=== PATIENT | male | born 1995 | race American Indian/Alaskan Native ===

== ENCOUNTER 2017-01-29 11:15 | Emergency (ER) ==
[2017-01-29 11:21] VITALS: BMI 32.4
[2017-01-29] MEDS ORDERED: ALBUTEROL 0.083% NEB NEB STA (11:41)
--- NOTE | 2017-01-29 11:41 | ED.PDOC ---
General ED Provider: Dr. KHOA MARX Chief Complaint: Respiratory Complaint Stated Complaint: Patient is a 21 year old who comes to the ER with cough productive of onset yellow/green mucous, with some wheezing. Time Seen by Physician: 11:35 Mode of Arrival: Walk-In Information Source: Patient Exam Limitations: No limitations Nursing and Triage Documentation Reviewed and Agree: Yes Review of Systems - Review Of Systems Constitutional: Reports: Fever Eyes: Reports: No symptoms Ears, Nose, Mouth, Throat: Reports: No symptoms Respiratory: Reports: Cough Cardiac: Reports: No symptoms GI: Reports: No symptoms : Reports: No symptoms Musculoskeletal: Reports: No symptoms Skin: Reports: No symptoms Neurological: Reports: No symptoms Endocrine: Reports: No symptoms Hematologic/Lymphatic: Reports: No symptoms All Other Systems: Reviewed and Negative Past Medical History - Past Medical History Previously Healthy: Yes Endocrine: Reports: None Cardiovascular: Reports: None Respiratory: Reports: None Hematological: Reports: None Gastrointestinal: Reports: None Genitourinary: Reports: None Neuro/Psych: Reports: None Musculoskeletal: Reports: None Cancer: Reports: None - Surgical History General Surgical History: Reports: None - Family History Family History: Reports: None - Social History Smoking Status: Former smoker Hx Substance Use: No Alcohol Screening: Occasionally Physical Exam - Physical Exam Appearance: Ill-appearing, Obese Ill-appearing: Mild Pain Distress: Mild Eyes: CASIMIRO, EOMI, Conjunctiva clear ENT: Ears normal, Nose normal, Oropharynx normal Neck: Supple Respiratory: Airway patent, Breath sounds clear, Breath sounds equal, Respirations nonlabored Cardiovascular: RRR, Pulses normal, No rub, No murmur GI/: Soft, Nontender, No masses, Bowel sounds normal, No Organomegaly Musculoskeletal: Normal strength, ROM intact, No edema, No calf tenderness Skin: Warm, Dry, Normal color Neurological: Sensation intact, Motor intact, Reflexes intact, Cranial nerves intact, Alert, Oriented Psychiatric: Affect appropriate, Mood appropriate Interpretation - Radiology Interpretation Radiology Interpretation By: Radiologist Radiology Results: Negative Exam Interpreted: CXR Critical Care Note - Critical Care Note Total Time (mins): 0 Course - Course Orders, Labs, Meds: Lab Review 01/29/17 11:30 Influenza A (Rapid) Negative Influenza B (Rapid) Negative Orders Category Date Time Status NEBULIZER TREATMENT Stat CARDIO 01/29/17 11:42 Completed MOLECULAR GROUP A STREP Stat LAB 01/29/17 11:30 Completed RAPID FLU A/B Stat LAB 01/29/17 11:30 Completed STREP SCREEN Stat LAB 01/29/17 11:30 Completed Albuterol Sulfate 0.083% Neb [Albuterol 0.083% Neb] MEDS 01/29/17 11:41 Discontinued 1 vial NEB ONCE STA CHEST, 2 VIEWS PA & LAT Stat RADS 01/29/17 11:41 Completed Medications Discontinued Medications Generic Name Dose Route Start Last Admin Trade Name Carlos PRN Reason Stop Dose Admin Albuterol Sulfate 1 vial 01/29/17 11:41 01/29/17 12:16 Albuterol 0.083% Neb NEB 01/29/17 11:42 1 vial ONCE STA Administration Vital Signs: Temp Pulse Resp BP Pulse Ox 01/29/17 12:46 98.8 F 88 20 130/76 97 01/29/17 11:16 98 F 79 20 136/74 95 Departure - Departure Time of Disposition: 12:18 Disposition: HOME SELF-CARE Discharge Problem: Viral upper respiratory tract infection with cough Instructions: Viral Syndrome (ED), Cold Symptoms (ED) Condition: Good Pt referred to PMD for follow-up: Yes Additional Instructions: May use over the counter decongestants and cough medications.; keep well hydrated. Follow up with primary care as needed - call for appointment. Allergies/Adverse Reactions: Allergies No Known Allergies Allergy (Verified 01/29/17 11:24) Home Medications: Ambulatory Orders 1 [No Reported Medications] 10/26/16 Disposition Discussed With: Patient
[2017-01-29 11:53] LABS: FLU INTERNAL QC INTERNAL QC VALID; RAPID FLU A NEGATIVE (NEGATIVE); RAPID FLU B NEGATIVE (NEGATIVE)
--- NOTE | 2017-01-29 11:56 | DI ---
EXAM: Two views of the chest. History: Productive cough. Findings: Heart size is normal. No focal consolidation. No appreciable pleural fluid and no pneum othorax. No acute osseous abnormalities. Impression: No acute cardiopulmonary process.
[2017-01-29 12:47] VITALS: BP 130/76; TEMP 98.8
== END 2017-01-29 12:48 | disposition home or self-care (01) ==
LOC: ED 11:15
DX: J06.9 Acute upper respiratory infection, unspecified (principal); B34.9 Viral infection, unspecified
CPT/HCPCS: 87651; 87804; 87880; 94640; 99283

== ENCOUNTER 2018-12-04 14:46 | Emergency (ER) ==
[2018-12-04 14:49] VITALS: BP 160/93; TEMP 97.7; BMI 32.5
[2018-12-04] MEDS ORDERED: LIDOCAINE HCL 1% SDV SUBCUT STA (16:03)
--- NOTE | 2018-12-04 16:38 | ED.PDOC ---
General ED Provider: Dr. ANJEL LU Chief Complaint: Hand Laceration Stated Complaint: hand laceration left hand Time Seen by Physician: 15:00 (see photos) Mode of Arrival: Walk-In Information Source: Patient Exam Limitations: No limitations Nursing and Triage Documentation Reviewed and Agree: Yes Does patient meet sepsis criteria?: No System Inflammatory Response Syndrome: Not Applicable Sepsis Protocol: For patient's 13 years and over: Temp is 96.8 and below OR 101 and greater Pulse >90 BPM Resp >20/minute Acutely Altered Mental Status Are patient's symptoms suggestive of a new infection, such as: -Pneumonia -Skin, Soft Tissue -Endocarditis -UTI -Bone, Joint Infection -Implantable Device -Acute Abdominal Infection -Wound Infection -Meningitis -Blood Stream Catheter Infection -Unknown Skin Complaint Exam - Lac/Torso/Upper Ext. Complaint/Exam Location of Injury: Left (hand) Mechanism of Injury: Laceration Symptoms Are: Still present Initial Severity: Mild Current Severity: Mild Aggravating: None Alleviating: None Associated Signs and Symptoms: Denies: Fever, Chills, Erythema, Numbness, Tingling Differential Diagnoses: Laceration Review of Systems - Review Of Systems Constitutional: Reports: No symptoms Eyes: Reports: No symptoms Ears, Nose, Mouth, Throat: Reports: No symptoms Respiratory: Reports: No symptoms Cardiac: Reports: No symptoms GI: Reports: No symptoms : Reports: No symptoms Musculoskeletal: Reports: No symptoms Skin: Reports: Other (laceration left hand ) Neurological: Reports: No symptoms Endocrine: Reports: No symptoms Hematologic/Lymphatic: Reports: No symptoms All Other Systems: Reviewed and Negative Past Medical History - Past Medical History Previously Healthy: Yes Endocrine: Reports: None Cardiovascular: Reports: None Respiratory: Reports: None Hematological: Reports: None Gastrointestinal: Reports: None Genitourinary: Reports: None Neuro/Psych: Reports: None Musculoskeletal: Reports: None Cancer: Reports: None - Surgical History General Surgical History: Reports: None - Family History Family History: Reports: None - Social History Smoking Status: Former smoker Hx Substance Use: No Alcohol Screening: Occasionally - Immunizations Tetanus Shot up to Date: Yes Physical Exam - Physical Exam Appearance: Well-appearing, No pain distress, Well-nourished Eyes: CASIMIRO, EOMI, Conjunctiva clear ENT: Ears normal, Nose normal, Oropharynx normal Respiratory: Airway patent, Breath sounds clear, Breath sounds equal, Respirations nonlabored Cardiovascular: RRR, Pulses normal, No rub, No murmur GI/: Soft, Nontender, No masses, Bowel sounds normal, No Organomegaly Musculoskeletal: Normal strength, ROM intact, No edema, No calf tenderness Skin: Warm, Dry, Normal color Neurological: Sensation intact, Motor intact, Reflexes intact, Cranial nerves intact, Alert, Oriented Psychiatric: Affect appropriate, Mood appropriate Procedures - Laceration/Wound Repair No standard instances Wound Description: Linear Wound Length (cm): 1cm Wound Width: 3mm Wound Depth: 2mm Wound Explored: Clean Wound Irrigated: No Wound Prep: Hibiclens Anesthesia: Lidocaine (plain 1.5 ml) Wound Debrided: Minimal Wound Margins: Revised, Vermilion border aligned Wound Repaired With: Sutures Suture Size and Type: 3 prolene Number of Sutures: 7 Number of Stella: 0 Critical Care Note - Critical Care Note Total Time (mins): 0 Course - Course Orders, Labs, Meds: Orders Category Date Time Status Lidocaine HCl/Pf [Lidocaine HCl 1% Sdv] MEDS 12/04/18 16:03 Discontinued 5 ml SUBCUT ONCE STA Medications Discontinued Medications Generic Name Dose Route Start Last Admin Trade Name Freq PRN Reason Stop Dose Admin Lidocaine HCl 5 ml 12/04/18 16:03 12/04/18 16:16 Lidocaine Hcl 1% Sdv SUBCUT 12/04/18 16:04 5 ml ONCE STA Administration Vital Signs: Temp Pulse Resp BP Pulse Ox 12/04/18 14:46 97.7 F 86 18 160/93 H 98 Departure - Departure Time of Disposition: 16:41 Disposition: HOME SELF-CARE Discharge Problem: Laceration of hand Instructions: Laceration (ED), Laceration (DC) Condition: Good Pt referred to PMD for follow-up: Yes IPMP verified?: No Additional Instructions: Please call your Family Physician as soon as possible to schedule a follow-up appointment. Allergies/Adverse Reactions: Allergies No Known Allergies Allergy (Verified 12/04/18 14:50) Home Medications: Ambulatory Orders 1 [No Reported Medications] 10/26/16 Disposition Discussed With: Patient
== END 2018-12-04 17:11 | disposition home or self-care (01) ==
LOC: ED 14:46
DX: S61.412A Laceration without foreign body of left hand, initial encounter (principal); W45.8XXA Other foreign body or object entering through skin, initial encounter
CPT/HCPCS: 99283